=== PATIENT | female | born 1930 | race Caucasian/White ===

== ENCOUNTER 2019-03-06 13:57 | Inpatient (IN) | payer MEDICARE ==
[~2019-03-06] VITALS: Ht 170.2 cm; Wt 76.3 kg
--- NOTE | 2019-03-06 14:22 | NUR ---
PT TRANSFERED FROM [facility] FOR NEW MASS FOUND ON CT. 17 MM W 7 MM L TO R SHIFT. PER EMS FAMILY HAS NOTICED CONFUSION FROM PT PAST FEW DAYS. PT NEURO INTACT. 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 PT ANSWERING ALL QUESTIONS TO TIME, PLACE, PERSON. SLIGHT CONFUSION. NO DISTRESS, RESPIRATIONS EVEN AND UNLABORED.
--- NOTE | 2019-03-06 14:55 | NUR ---
PT SBA TO BSC TO VOID. 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 PT GIVEN CALL LIGHT, NO NEEDS AT THIS TIME. POC FOR ADMIT TO ICU
[2019-03-06] MEDS ORDERED: GADOTERATE 7.5 MMOL/15 ML SYR ONE (15:47)
[2019-03-06] MEDS ORDERED: SODIUM CHLORIDE FLUSH 10ML SYR IVF ONE (16:00)
[2019-03-06] MEDS ORDERED: SODIUM CHLORIDE FLUSH 10ML SYR IVF PRN (16:00)
--- NOTE | 2019-03-06 16:11 | NUR ---
THIS FLOAT RN AT BEDSIDE TO RELIEVE PRIMARY RN FOR BREAK. PT AMBULATORY C ASSIST TO BEDSIDE CAMMODE. TOLERATED ACTIVITY WELL. PT ASSISTED BACK INTO GURNEY, FALL PRECAUTIONS IN PLACE. CALL LIGHT W/IN REACH, PT VERBALIZED UNDERSTANDING ON USE. PT'S FAMILY REMAIN AT BEDSIDE VSS.
--- NOTE | 2019-03-06 16:26 | NUR ---
PER PT'S FAMILY, PT DX C UTI AT PMD THIS A.M. HAS NOT HAD A CHANCE TO FILL HER RX. DR. DAVIS MADE AWARE.
[2019-03-06] MEDS ORDERED: LEVO50TA5 PO (16:27)
--- NOTE | 2019-03-06 17:08 | NUR ---
PT SLEEPING, FAMILY AT BEDSIDE.
--- NOTE | 2019-03-06 18:00 | NUR ---
REPORT TO DEVI
[2019-03-06] MEDS ORDERED: LABETALOL 5MG/ML, 20ML IV PRN (19:00)
[2019-03-06] MEDS ORDERED: INSTRUCTION SEE COMMENTS XX ONE (19:00)
[2019-03-06] MEDS ORDERED: ONDANSETRON 2MG/ML, 2ML IVPush PRN (19:00)
[2019-03-06] MEDS ORDERED: ENALAPRILAT 1.25 MG/ML, 2ML IV PRN (19:00)
[2019-03-06] MEDS ORDERED: OMNIPAQUE 350 MG/ML, 100ML BOTTLE ONE (19:00)
[2019-03-06] MEDS ORDERED: PROMETHAZINE 25 MG/ML, 1ML IM PRN (19:00)
[2019-03-06] MEDS: DEXAMETHASONE 4 MG/ML, 1ML IVPush SCH (21:23)
[2019-03-06 22:14] VITALS: BP 136/66
[2019-03-07] MEDS: DEXAMETHASONE 4 MG/ML, 1ML IVPush SCH ×4 (03:19→20:54)
[2019-03-07 04:00] VITALS: BP 116/60
[2019-03-07 05:01] LABS: CHOL/HDL RATIO 3.4; LDL/HDL RATIO 2.3 (0.5-3.0)
[2019-03-07] MEDS: CEFTRIAXONE PMX 1GM/50ML 50 ML IV SCH (08:05)
[2019-03-07] MEDS: LEVOTHYROXINE 100 MCG INJ IVPush SCH (10:35)
[2019-03-07 14:31] LABS: BASOPHILS # (AUTO) 0.01 x10^3/uL (0-0.1); BASOPHILS % (AUTO) 0 % (0-1); EOSINOPHILS % (AUTO) 0 % (1-7); LYMPHOCYTES # (AUTO) 0.69 x10^3/uL (1-3.4); LYMPHOCYTES % (AUTO) 14 % (22-44); MD NO; MEAN CORPUSCULAR HGB CONC 32.7 g/dL (32.4-35.8); MEAN CORPUSCULAR VOLUME 94.8 fL (80-100); MEAN PLATELET VOLUME 9.1 fL (7.4-10.4); MONOCYTES # (AUTO) 0.08 x10^3/uL (0.2-0.8); MONOCYTES % (AUTO) 2 % (2-9); NEUTROPHILS # (AUTO) 4.03 x10^3/uL (1.8-6.8); NEUTROPHILS % (AUTO) 84 % (42-75); PLATELET COUNT 242 x10^3/uL (130-400); RED BLOOD COUNT 3.89 x10^6/uL (3.82-5.3); RED CELL DISTRIBUTION WIDTH 14.2 % (9.6-15.2)
[2019-03-07 14:55] LABS: ALANINE AMINOTRANSFERASE 20 U/L (12-78); ALBUMIN 3.2 g/dL (3.4-5.0); ANION GAP 10 mmol/L (5-15); CALCIUM 8.5 mg/dL (8.5-10.1); CHLORIDE 108 mmol/L (98-107); CREATININE 1.22 mg/dL (0.55-1.02)
[2019-03-07 14:57] LABS: ALKALINE PHOSPHATASE 69 U/L (45-117); BILIRUBIN,TOTAL 0.3 mg/dL (0.2-1.0); TOTAL PROTEIN 7.5 g/dL (6.4-8.2)
[2019-03-07 15:28] LABS: MEAN CORPUSCULAR HEMOGLOBIN 30.8 pg (27.0-34.8); MEAN CORPUSCULAR HGB CONC 33.2 g/dL (32.4-35.8); MEAN CORPUSCULAR VOLUME 92.9 fL (80-100); MEAN PLATELET VOLUME 8.6 fL (7.4-10.4); PLATELET COUNT 260 x10^3/uL (130-400); RED BLOOD COUNT 3.84 x10^6/uL (3.82-5.3); RED CELL DISTRIBUTION WIDTH 14.3 % (9.6-15.2)
[2019-03-07 15:31] LABS: ALANINE AMINOTRANSFERASE 22 U/L (12-78); ALBUMIN 3.3 g/dL (3.4-5.0); ANION GAP 8 mmol/L (5-15); CALCIUM 8.8 mg/dL (8.5-10.1); CHLORIDE 107 mmol/L (98-107); CREATININE 1.42 mg/dL (0.55-1.02)
[2019-03-07 15:33] LABS: ALKALINE PHOSPHATASE 68 U/L (45-117); BILIRUBIN,TOTAL 0.2 mg/dL (0.2-1.0); TOTAL PROTEIN 7.9 g/dL (6.4-8.2)
[2019-03-07 15:35] LABS: INTERNATIONAL NORMALIZED RATIO 0.96 (0.93-1.1); PROTHROMBIN TIME 10.2 Seconds (9.6-11.5)
[2019-03-07 15:44] LABS: BASOPHILS # (AUTO) 0.02 x10^3/uL (0-0.1); BASOPHILS % (AUTO) 0 % (0-1); EOSINOPHILS % (AUTO) 0 % (1-7); LYMPHOCYTES # (AUTO) 0.79 x10^3/uL (1-3.4); LYMPHOCYTES % (AUTO) 9 % (22-44); MD SCAN; MONOCYTES # (AUTO) 0.28 x10^3/uL (0.2-0.8); MONOCYTES % (AUTO) 3 % (2-9); NEUTROPHILS # (AUTO) 7.61 x10^3/uL (1.8-6.8); NEUTROPHILS % (AUTO) 88 % (42-75)
[2019-03-07 16:46] VITALS: BP 126/52
[2019-03-07 20:26] VITALS: BP 114/66
[2019-03-08 01:23] VITALS: BP 101/60
[2019-03-08] MEDS: DEXAMETHASONE 4 MG/ML, 1ML IVPush SCH ×4 (04:17→20:30)
[2019-03-08 04:18] VITALS: BP 112/68
[2019-03-08 05:39] LABS: ANION GAP 8 mmol/L (5-15); CALCIUM 8.4 mg/dL (8.5-10.1); CHLORIDE 109 mmol/L (98-107)
[2019-03-08 05:51] LABS: BASOPHILS # (AUTO) 0.02 x10^3/uL (0-0.1); BASOPHILS % (AUTO) 0 % (0-1); EOSINOPHILS % (AUTO) 0 % (1-7); LYMPHOCYTES # (AUTO) 0.94 x10^3/uL (1-3.4); LYMPHOCYTES % (AUTO) 9 % (22-44); MD NO; MEAN CORPUSCULAR HGB CONC 33.5 g/dL (32.4-35.8); MEAN CORPUSCULAR VOLUME 92.3 fL (80-100); MONOCYTES # (AUTO) 0.34 x10^3/uL (0.2-0.8); MONOCYTES % (AUTO) 3 % (2-9); NEUTROPHILS # (AUTO) 9.56 x10^3/uL (1.8-6.8); NEUTROPHILS % (AUTO) 88 % (42-75); PLATELET COUNT 244 x10^3/uL (130-400); RED BLOOD COUNT 3.56 x10^6/uL (3.82-5.3); RED CELL DISTRIBUTION WIDTH 14.1 % (9.6-15.2)
[2019-03-08 05:52] LABS: CREATININE 1.24 mg/dL (0.55-1.02)
[2019-03-08 08:07] VITALS: BP 116/64
[2019-03-08] MEDS: CEFTRIAXONE PMX 1GM/50ML 50 ML IV SCH (08:25)
[2019-03-08] MEDS: LEVOTHYROXINE 100 MCG INJ IVPush SCH (09:55)
[2019-03-08] MEDS ORDERED: GADOTERATE 7.5 MMOL/15 ML SYR ONE (12:30)
[2019-03-08 13:00] VITALS: BP 123/65
[2019-03-08 20:11] VITALS: BP 121/71
[2019-03-09 01:17] VITALS: BP 110/61
[2019-03-09] MEDS: DEXAMETHASONE 4 MG/ML, 1ML IVPush SCH ×3 (03:42→15:30)
[2019-03-09 04:05] VITALS: BP 115/65
[2019-03-09] MEDS ORDERED: LEVOTHYROXINE 50 MCG TABLET PO SCH (06:00)
[2019-03-09 06:40] VITALS: BP 144/75
[2019-03-09] MEDS: CEFTRIAXONE PMX 1GM/50ML 50 ML IV SCH (07:38)
[2019-03-09] MEDS ORDERED: DEXA4TAB66 PO (11:56)
[2019-03-09] MEDS ORDERED: CEFD300C37 PO (11:56)
[2019-03-09 12:45] VITALS: BP 121/77
== END 2019-03-09 16:14 | disposition hospice, home (50) | DRG 80 ==
LOC: ED 15:55 → EDIP 15:56 → ED 16:19 → ICU 18:55 → 4EST 03-07 17:52
PROVIDERS: ADMIT Internal Medicine; ATTEND Internal Medicine
DX: G93.6 Cerebral edema (principal); G93.41 Metabolic encephalopathy; R47.01 Aphasia; E87.1 Hypo-osmolality and hyponatremia; N39.0 Urinary tract infection, site not specified; R90.89 Other abnormal findings on diagnostic imaging of central nervous system; E03.9 Hypothyroidism, unspecified; H91.90 Unspecified hearing loss, unspecified ear; Z66 Do not resuscitate; Z96.659 Presence of unspecified artificial knee joint; Z85.3 Personal history of malignant neoplasm of breast; Z90.710 Acquired absence of both cervix and uterus; Z92.3 Personal history of irradiation
CPT/HCPCS: 36415; 70553; 71045; 71260; 74177; 80048; 80053; 80061; 84443; 85025; 85610; 85730; 87081; 93005; 96374; 99285; G0378; J0696; J1100; Q9967; 92523-GN; A9575